=== PATIENT | female | born 2000 | race Caucasian/White ===

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

== ENCOUNTER 2018-11-24 12:36 | Emergency (ER) | payer SELFPAY ==
[~2018-11-24] VITALS: Ht 152.4 cm; Wt 85.6 kg
[~2018-11-24 12:36] MED LIST: ALBU2.5V3 NEB; ALBU8.5H8 INH; ONDA4TAB11 PO; [UNRECOGNIZED DRUG - CODE] MC
[2018-11-24 12:38] VITALS: BP 125/66; PULSE 62; RESP 18; Ht 152.4 cm; Wt 85.6 kg
[2018-11-24] MEDS ORDERED: ALBUTEROL 0.083% (NEB) 2.5 MG/3 ML AMP HHN STA (14:42)
[2018-11-24] MEDS ORDERED: IPRATROPIUM (NEB) 0.5 MG/2.5 ML AMP HHN ONE (15:00)
[2018-11-24] MEDS ORDERED: DEXAMETHASONE 10 MG/ML 1 ML INJ IM ONE (15:00)
[2018-11-24] MEDS ORDERED: ALBU18HF INHALATION (16:39)
[2018-11-24] MEDS ORDERED: CETI10CA PO (16:39)
--- NOTE | 2018-11-24 17:29 | ERD ---
ER Documentation Chief Complaint Chief Complaint SOB, NO CP, ONSET 3 DAYS HPI History of Present Illness: 17-year-old female who reports a past medical history of asthma coming in today with complaint of shortness of breath is been present for 3 days. Patient denies any other associated symptoms. Patient speaking in clear sentences during physical exam. Denies fever, chills, chest pain. At home pharmacological/nonpharmacological treatment for symptoms: Denies Denies social concerns; Denies recent foreign travel ROS All systems reviewed and are negative except as per history of present illness. Medications Home Meds Active Scripts Cetirizine Hcl* (Zyrtec*) 10 Mg Capsule, 10 MG PO DAILY for ALLERGIES/COUGH, #10 TAB.CHEW Prov:EVARISTO PAULINO NP 11/24/18 Albuterol Sulfate* (Ventolin HFA*) 18 Gm Hfa.aer.ad, 2 PUFF INHALATION Q4H, #1 INHALER Prov:EVARISTO PAULINO NP 11/24/18 Ondansetron (Zofran Odt) 4 Mg Tab.rapdis, 4 MG PO Q4H PRN for NAUSEA, #30 TAB Prov:AMILCAR BATISTA MD 11/18/17 Nebulizer Accessories (ADULT AEROSOL MASK) 1 Each Each, 1 EACH MC TID PRN for WHEEZING, #1 Prov:JOSE M VALDEZ MD 06/29/17 Albuterol Sulfate* (Proair HFA*) 8.5 Gm Hfa.aer.ad, 2 PUFF INH Q4H PRN for WHEEZING AND SOB, #1 INHALER Prov:JOSE M VALDEZ MD 06/29/17 Albuterol Sulfate* (Albuterol Sulfate* Neb) 0.083%-3 Ml Neb, 2.5 MG NEB Q4 PRN for SHORTNESS OF BREATH, #30 EA Prov:JOSE M VALDEZ MD 06/29/17 Allergies Allergies: Coded Allergies: No Known Allergy (Unverified , 11/17/17) PMhx/Soc History of Surgery: No Anesthesia Reaction: No Hx Neurological Disorder: No Hx Respiratory Disorders: Yes (ASTHMA, AGE OF ONSET UNK ) Hx Cardiac Disorders: No Hx Psychiatric Problems: No Hx Miscellaneous Medical Probl: No Hx Alcohol Use: No Hx Substance Use: No Hx Tobacco Use: No Smoking Status: Never smoker FmHx Family History: No diabetes, No coronary disease Physical Exam Vitals Vital Signs Date Temp Pulse Resp B/P (MAP) Pulse Ox O2 O2 Flow FiO2 Time Delivery Rate 11/24/18 73 20 100 21 15:18 11/24/18 97.8 62 18 125/66 96 12:38 (85) Physical Exam Const: No acute distress, afebrile Head: Atraumatic Eyes: Normal Conjunctiva ENT: Normal External Ears, Nose and Mouth. Neck: Full range of motion. No meningismus. Resp: Clear to auscultation bilaterally, diminished Cardio: Regular rate and rhythm, no murmurs Abd: Soft, non tender, non distended. No guarding, no masses, no rigidity Skin: No petechiae or rashes Back: No midline or flank tenderness Ext: No cyanosis, or edema Neur: Awake and alert x3, speaking in clear sentences, no focal deficits or facial asymmetry Psych: Normal Mood and Affect Results 24 hrs Laboratory Tests Test 11/24/18 15:05 POC Beta HCG, Qualitative NEGATIVE Current Medications Medications Dose Sig/Xuan Start Time Status Last (Trade) Ordered Route PRN Stop Time Admin Dose Reason Admin 8 mg ONCE ONCE 11/24/18 DC 11/24/18 Dexamethasone IM 15:00 15:07 (Decadron) 11/24/18 15:01 Albuterol 5 mg ONCE STAT 11/24/18 DC 11/24/18 (Proventil HHN 14:42 15:15 0.083% (Neb)) 11/24/18 14:43 Ipratropium 0.5 mg ONCE ONCE 11/24/18 DC 11/24/18 [place] HHN 15:00 15:15 (Atrovent 11/24/18 15:01 0.02% (Neb)) Procedures/MDM ED COURSE: ED course includes a thorough examination and history. The patient was stable throughout ED course. I kept the patient and/or family informed of laboratory and diagnostic imaging results throughout the ED course. LABS: Urine negative MEDICATIONS GIVEN IN ER: Nebulizer treatments including albuterol and Atrovent. Dexamethasone. Patient tolerated medication well with no adverse reactions. Patient reported improvement in pain. DIAGNOSTIC IMAGING: Read by radiologist. Chest x-ray showing: IMPRESSION: No acute disease. RPTAT: AA .Andre Altamirano MD, Date Time Electronically viewed and signed by .Andre Altamirano MD, MD on 11/24/2018 16:08 PROCEDURES: None. MEDICAL DECISION MAKING: Low suspicion for life-threatening medical emergency. Low suspicion for cardiopulmonary emergency including pneumothorax, pulmonary embolism, cardiac related Otherwise healthy patient presenting with constellation of symptoms likely representing asthma as characterized by history, physical exam findings, radiology findings. Patient reassessment @1639: Patient with decreased shortness of breath. No respiratory distress noted. Patient hemodynamically stable. No respiratory distress, otherwise relatively well appearing and nontoxic. Disposition given. Patient educated on diagnoses, prescriptions, follow-up care, return preca utions. Strict return precautions given for worsening condition; questions answered discharge. Patient verbalizes understanding of discharge instructions. PRESCRIPTIONS FOR HOME: Ventolin, cetirizine DISPOSITION: DISCHARGE At this time, patient is stable for discharge and outpatient management. I have instructed the patient to follow-up with his/her primary care physician in 1-2 days. I have discussed with the patient the possibility of needing to see a specialist for further workup and imaging studies if symptoms persist. I have instructed the patient to promptly return to the ER for any new or worsening symptoms including increased pain, fever, nausea, vomiting, weakness or LOC. The patient and/or family expressed understanding of and agreement with this plan. All questions were answered. Home care instructions were provided. DISCLAIMER: Inadvertent spelling and grammatical errors are likely due to EHR/dictation software use and do not reflect on the overall quality of patient care. Also, please note that the electronic time recorded on this note does not necessarily reflect the actual time of the patient encounter. Departure Diagnosis: Primary Impression: Asthma Condition: Stable Patient Instructions: Asthma, Acute (Adult) Referrals: [facility] Usted se villeda hecho un examen mdico de control que le indica que no est en lily condicin que requiera tratamiento urgente en el Departamento de Emergencia. Un estudio ms profundo y el tratamiento de souza condicin pueden esperar sin ningn riesgo hasta que usted sea atendida/o en el consultorio de souza mdico o lily clnica. Es responsabilidad suya arreglar lily marry para el seguimiento del jasmyne. MANEJO DE CONDICIONES NO URGENTES EN EL FUTURO 1) Si usted tiene un mdico de atencin primaria: Usted debera llamar a souza mdico de atencin primaria antes de venir al departamento de emergencia. Despus de las horas de consultorio, souza doctor o souza asociado/a est disponible por telfono. El mdico o enfermero de nusrat en el servicio telefnico puede asesorarle por aron medio para atender el problema, o jasmyne contrario se puede programar lily marry. 2) Si usted no tiene un mdico de atencin primaria: Llame al mdico o clnica de referencia que aparece abajo samreen las horas de consultorio para hacer lily marry para que le vean. CLINICAS: [facility] [phone] [facility] [phone] [address] [facility] [phone] [facility] [phone] [facility]. [place] [id number] [phone] [facility]. [phone] [address] [facility] [address] [facility] () Usted se villeda hecho un examen mdico de control que le indica que no est en lily condicin que requiera tratamiento urgente en el Departamento de Emergencia. Un estudio ms profundo y el tratamiento de souza condicin pueden esperar sin ningn riesgo hasta que usted sea atendida/o en el consultorio de souza mdico o lily clnica. Es responsabilidad suya arreglar lily marry para el seguimiento del jasmyne. MANEJO DE CONDICIONES NO URGENTES EN EL FUTURO 1) Si usted tiene un mdico de atencin primaria: Usted debera llamar a souza mdico de atencin primaria antes de venir al departamento de emergencia. Despus de las horas de consultorio, souza doctor o souza asociado/a est disponible por telfono. El mdico o enfermero de nusrat en el servicio telefnico puede asesorarle por aron medio para atender el problema, o jasmyne contrario se puede programar lily marry. 2) Si usted no tiene un mdico de atencin primaria: Llame al mdico o condado institucions de referencia que aparece abajo samreen las horas de consultorio para hacer lily marry para que le vean. SI USTED NO PUEDE PAGAR PARA DALIA UN MEDICO puede ir a: [facility] [address] [place] [address] [facility] [address] [place] [address] [facility] [address] [place] [address] [facility] [address] [place], [place] [id number] Additional Instructions: Google Translate utilizado para la traduccin de las siguientes lneas, por favor, disculpe los errores. Muchas silvia por permitirnos participar en souza cuidado. Souza gwen y seguridad es nuestra principal prioridad en [facility]. Es importante leer todas las instrucciones de narendra y la educacin que se proporcionan en souza paquete de narendra. Llame a souza mdico de atencin primaria MAANA para lily marry samreen los prximos 2 a 4 montano y lleve toda la informacin y los medicamentos recetados. Llene las recetas y siga exactamente las instrucciones de la etiqueta. Si los sntomas empeoran y souza proveedor no est disponible, regrese inmediatamente al Departamento de Emergencias. ----- Google Translate used for translation of following lines, please excuse errors. Thank you very much for allowing us to participate in your care. Your health and safety is our top priority at [facility]. It is important to read all discharge instructions and education provided in your discharge packet. Call your primary care doctor TOMORROW for an appointment during the next 2-4 days and bring all the information and medications prescribed. Have prescriptions filled and follow precisely the directions on the label. If the symptoms get worse and your provider is unavailable, return to the Emergency Department immediately. EVARISTO PAULINO NP Nov 24, 2018 17:29
== END 2018-11-24 16:56 | disposition home or self-care (01) ==
LOC: FTE 12:36
DX: J45.901 Unspecified asthma with (acute) exacerbation (principal)
CPT/HCPCS: 71045; 81025; 94664; 96372; 99284; J1100